=== PATIENT | female | born 1945 | race Hispanic/Latino ===

== ENCOUNTER 2018-02-17 10:15 | Observation (INO) | payer MEDICARE ==
[~2018-02-17] VITALS: Ht 160 cm; Wt 70.6 kg
[2018-04-14 13:15] VITALS: BP 168/88
[2018-04-14 13:27] LABS: BASOPHILS % (AUTO) 0.6 % (0.0-5.0); EOSINOPHILS % (AUTO) 0.5 % (0.0-8.0); HEMATOCRIT 37.1 % (36-48); LYMPHOCYTES % (AUTO) 28.2 % (21.0-51.0); MEAN CORPUSCULAR HEMOGLOBIN 29.6 pg (27.0-33.0); MEAN CORPUSCULAR HGB CONC 33.6 g/dL (32.0-36.0); MEAN CORPUSCULAR VOLUME 88.1 fL (79-99); MONOCYTES % (AUTO) 4.7 % (3.0-13.0); PLATELET COUNT (AUTO) 236 K/uL (130-400); RED BLOOD CELL COUNT(AUTO) 4.21 MIL/uL (4.00-5.50); RED CELL DISTRIBUTION WIDTH 14.1 % (11.0-15.5); WHITE BLOOD COUNT (AUTO) 9.1 K/uL (4.8-10.8)
[2018-04-14 13:38] LABS: BILIRUBIN,TOTAL 0.5 mg/dL (0.2-1.0); CREATININE 0.7 mg/dL (0.5-1.5); POTASSIUM 3.6 mmol/L (3.5-5.1); TOTAL PROTEIN, SERUM 7.5 g/dL (6.0-8.3)
[2018-04-14 14:06] LABS: APPEARANCE,URINE Clear (CLEAR); BILIRUBIN,URINE Negative (NEGATIVE); COLOR,URINE Yellow (YELLOW); GLUCOSE, URINE (UA) Negative (NEGATIVE); KETONES,URINE Negative (NEGATIVE); LEUKOCYTE ESTERASE ,URINE Trace (NEGATIVE); NITRATE,URINE Negative (NEGATIVE); OCCULT BLOOD,URINE Negative (NEGATIVE); PH,URINE 8.5 (5.0-8.0); PROTEIN,URINE Negative (NEGATIVE); UROBILINOGEN,URINE 0.2 mg/dL (0.2-1.0)
[2018-04-14 14:15] LABS: INR 0.95 (0.85-1.15); PARTIAL THROMBOPLASTIN TIME 25.7 SEC (26.3-35.5)
[2018-04-14 14:32] LABS: RBC,URINE 0-1 /HPF (0-1)
[2018-04-14 14:33] LABS: AMORPHOUS SEDIMENT,UR Few /LPF (None Seen); BACTERIA,URINE Rare /HPF (None Seen); MUCUS,URINE Rare LPF (None Seen); SQUAMOUS EPITHELIAL CELL,UR Rare /HPF (0-2); WBC,URINE 0-1 /HPF (0-1)
[2018-04-14] MEDS ORDERED: CALC-1200 PO (15:15)
[2018-04-14] MEDS ORDERED: ATOR20TA65 PO (15:15)
[2018-04-14] MEDS ORDERED: LOSA25TA16 PO (15:15)
[2018-04-15] VITALS (22 sets, daily range): BP systolic 137–188; BP diastolic 65–88
[2018-04-15] MEDS: CEFAZOLIN SODIUM 1 GM VIAL IVP SCH ×3 (12:00→20:26)
[2018-04-15] MEDS ORDERED: LACTATED RINGERS 1000ML 1,000 ML IV ONE (12:14)
[2018-04-15] MEDS ORDERED: DEXAMETHASONE SOD PHOSPHATE 10MG/ML 1ML VIAL ONE (14:14)
[2018-04-15] MEDS ORDERED: LIDOCAINE PF 2% 5ML ABBOJECT ONE (14:15)
[2018-04-15] MEDS ORDERED: GLYCOPYRROLATE 1 MG/5 ML SYRINGE ONE (14:15)
[2018-04-15] MEDS ORDERED: PROPOFOL 10 MG/ML 20ML VIAL IV ONE ×2 (14:15→16:08)
[2018-04-15] MEDS ORDERED: ONDANSETRON HCL 4 MG/2 ML VIAL ONE (14:15)
[2018-04-15] MEDS ORDERED: FENTANYL CITRATE PF 50 MCG/1 ML 2ML VIAL ONE (14:15)
[2018-04-15] MEDS ORDERED: NEOSTIGMINE 5MG/5ML SYR IV ONE (14:15)
[2018-04-15] MEDS ORDERED: ROCURONIUM 10MG/1ML SYR 10 MG/ML ML ONE (14:16)
[2018-04-15] MEDS ORDERED: ROPIVACAINE 0.5% 5MG/ML 30ML IJ ONE (14:29)
[2018-04-15] MEDS ORDERED: HYDRALAZINE HCL 20 MG/ML VIAL ONE (16:31)
[2018-04-15] MEDS ORDERED: MORPHINE SULFATE 2 MG/ML 1ML SYG ONE (16:44)
[2018-04-15 16:54] LABS: HEMATOCRIT 35.5 % (36-48)
[2018-04-15 18:09] LABS: HEMATOCRIT 35.5 % (36-48)
[2018-04-15] MEDS ORDERED: DEXTROSE 5%-LACTATED RINGERS 1,000 ML IV SCH (18:30)
[2018-04-15] MEDS ORDERED: ACETAMINOPHEN 325 MG TAB PO PRN ×2 (18:30→19:45)
[2018-04-15] MEDS ORDERED: BISACODYL 10 MG SUPP.RECT RC PRN (18:30)
[2018-04-15] MEDS ORDERED: PROMETHAZINE HCL 25 MG/ML 1ML AMPULE IM PRN (18:30)
[2018-04-15] MEDS ORDERED: MORPHINE SULFATE 10 MG/ML 1ML SYG IM PRN (18:30)
[2018-04-15] MEDS ORDERED: MORPHINE SULFATE 10 MG/ML 1ML VIAL IM PRN (18:30)
[2018-04-15] MEDS ORDERED: MAGNESIUM HYDROXIDE 30 ML/UDCUP PO PRN (18:30)
[2018-04-15] MEDS ORDERED: BENZOCAINE/MENTH/CETYLPYRD CL 1 EACH LOZENGE MM PRN (19:30)
[2018-04-15] MEDS ORDERED: HYDROCODONE/ACETAMINOPHEN 5/325 MG TAB PO PRN (19:45)
[2018-04-15] MEDS ORDERED: ONDANSETRON HCL 4 MG/2 ML VIAL IV PRN (19:45)
[2018-04-15] MEDS ORDERED: HYDRALAZINE HCL 20 MG/ML VIAL IV PRN (19:45)
[2018-04-15] MEDS: HYDROCODONE/ACETAMINOPHEN 5/325 MG TAB PO PRN (20:25)
[2018-04-16] VITALS: BP 133/71
[2018-04-16 00:39] LABS: HEMATOCRIT 33.2 % (36-48)
[2018-04-16 04:00] VITALS: BP 170/77
[2018-04-16] MEDS: CEFAZOLIN SODIUM 1 GM VIAL IVP SCH ×2 (04:57→15:51)
[2018-04-16] MEDS: HYDROCODONE/ACETAMINOPHEN 5/325 MG TAB PO PRN ×3 (04:58→14:17)
[2018-04-16 06:09] VITALS: BP 126/64
[2018-04-16 06:18] LABS: BASOPHILS % (AUTO) 0.6 % (0.0-5.0); EOSINOPHILS % (AUTO) 0.1 % (0.0-8.0); HEMATOCRIT 33.6 % (36-48); LYMPHOCYTES % (AUTO) 17.9 % (21.0-51.0); MEAN CORPUSCULAR HEMOGLOBIN 29.6 pg (27.0-33.0); MEAN CORPUSCULAR HGB CONC 33.6 g/dL (32.0-36.0); MEAN CORPUSCULAR VOLUME 88.1 fL (79-99); MONOCYTES % (AUTO) 6.1 % (3.0-13.0); NEUTROPHILS % (AUTO) 75.3 % (40.0-77.0); PLATELET COUNT (AUTO) 235 K/uL (130-400); RED BLOOD CELL COUNT(AUTO) 3.82 MIL/uL (4.00-5.50); RED CELL DISTRIBUTION WIDTH 14.3 % (11.0-15.5); WHITE BLOOD COUNT (AUTO) 11.1 K/uL (4.8-10.8)
[2018-04-16 06:40] LABS: ALBUMIN 3.5 g/dL (3.5-5.0); BILIRUBIN,TOTAL 0.4 mg/dL (0.2-1.0); CREATININE 0.8 mg/dL (0.5-1.5); POTASSIUM 3.9 mmol/L (3.5-5.1)
[2018-04-16 08:00] VITALS: BP 147/72
[2018-04-16] MEDS ORDERED: LOSARTAN 50 MG TABLET PO SCH (09:00)
[2018-04-16] MEDS ORDERED: CALCIUM 600 + VITAMIN D 400 TABLET PO SCH (09:00)
[2018-04-16] MEDS ORDERED: PANTOPRAZOLE SODIUM 40 MG TABLET.DR PO SCH (09:00)
[2018-04-16] MEDS ORDERED: ATORVASTATIN CALCIUM 20 MG TABLET PO NR (09:00)
[2018-04-16 12:00] VITALS: BP 143/68
[2018-04-16] MEDS ORDERED: TRAM50TA4 PO (14:09)
== END 2018-04-16 16:57 | disposition home or self-care (01) ==
LOC: DAHIP 04-15 11:50 → EDSTATUS 04-15 12:00 → 4BH 04-15 17:14
DX: M75.42 Impingement syndrome of left shoulder (principal); M75.101 Unspecified rotator cuff tear or rupture of right shoulder, not specified as traumatic; E78.00 Pure hypercholesterolemia, unspecified; I11.9 Hypertensive heart disease without heart failure; M81.0 Age-related osteoporosis without current pathological fracture; Z82.5 Family history of asthma and other chronic lower respiratory diseases; Z79.899 Other long term (current) drug therapy; Z79.01 Long term (current) use of anticoagulants
CPT/HCPCS: 23120; 23130; 23412; 24110; 36415 ×3; 71045; 80053 ×2; 81001; 85014 ×3; 85018 ×3; 85025 ×2; 85610; 85730; 86850; 86900; 86901; 88304; 88311; 94760; 96374; 96376; 97116 ×2; 97161; A4218 ×2; A4510; A4606; A4930 ×2; A6207; A6223; C1713 ×2; G0378 ×30; G8978; G8979; G8980 ×2; G8981; G8982; G8983 ×2; J0360; J0690 ×4; J1100; J2001; J2405; J2704 ×2; J2710; J2795; J3010; J3490; J7030; J7120

== ENCOUNTER → 2018-09-24 | Outpatient (CLI) | payer MEDICARE ==
[~2018-09-24] MED LIST: ATOR20TA65 PO; CALC-1200 PO; LOSA25TA41 PO; TRAM50TA4 PO
== END | disposition home or self-care (01) ==
LOC: SHCH 09:11
PROVIDERS: ATTEND Internal Medicine Cardiovascular Disease
DX: I87.2 Venous insufficiency (chronic) (peripheral) (principal); I73.9 Peripheral vascular disease, unspecified
CPT/HCPCS: 93925; 93970